=== PATIENT | female | born 1990 | race Caucasian/White ===

== ENCOUNTER 2023-03-31 09:41 | Emergency (ER) | payer MEDICAID, SELFPAY ==
[2023-03-31 09:52] VITALS: BP 108/66; PULSE 88; RESP 18; TEMP 36.2; O2SAT 100; BMI 17.4
--- NOTE | 2023-03-31 10:01 | CRLHL7_ITS ---
For Patients: As a result of the Century Cures Act, medical imaging exams and procedure reports are released immediately into your electronic medical record. You may view this report before your referring provider. If you have questions, please contact your health care provider. INDICATION: Abdominal pain right-sided for 2 days with bloating for 1 month. COMPARISON: None TECHNIQUE: CT examination of the abdomen and pelvis was performed following the uneventful intravenous administration of 58 cc of Isovue 370. Thin section axial images were obtained from the lung bases through the pubic symphysis. Oral contrast was not administered. Please note that all CT scans at this facility use dose modulation, iterative reconstruction, and/or weight-based dosing when appropriate to reduce radiation dose to as low as reasonably achievable. FINDINGS: LUNG BASES: The lung bases as visualized appear normal.The heart size is normal at the lung bases. No pleural effusion at the lung bases LIVER/BILIARY SYSTEM:The liver is massively enlarged and diffusely fatty infiltrated. The infiltrative pattern is quite heterogeneous. This can be seen in severe fatty infiltration with a geographic pattern but this could also be infiltrative malignant disease in the setting of fatty infiltration. Cirrhosis superimposed on fatty infiltration is also possible. The underlying primary liver disease could be acute viral hepatitis, alcoholic or non alcoholic steatohepatitis, amongst other possibilities. There is no biliary ductal dilation. There is gallbladder wall thickening. It is unclear whether this is related to primary gallbladder pathology or the adjacent abnormal liver. Consider sonography. No visible stone ADRENALS: Normal KIDNEYS, URETERS and BLADDER:The kidneys appear normal. No visible mass, calculus or hydronephrosis. The ureters and bladder as visualized appear normal. SPLEEN:Normal appearance. PANCREAS: Appears normal. RETROPERITONEUM and MESENTERY: There is no mass, adenopathy or aortic aneurysm. GASTROINTESTINAL SYSTEM: Rosal[place] areas of bowel wall thickening though this is probably due to edema or fat deposition rather than a malignant or inflammatory process of bowel. There is no mechanical obstruction or definite visible mass appearing PELVIS: An IUD is normally located. OSSEOUS STRUCTURES and ABDOMINAL WALL: There is an age-appropriate appearance of the osseous structures.No significant abdominal wall defect. OTHER: Moderate to severe ascites IMPRESSION: 1. Markedly abnormal liver. It is enlarged and fatty infiltrated but there also appears to be an infiltrative pattern that is unusual for fatty infiltration alone. This raises the possibility of malignant infiltration. No biliary ductal dilation. 2. Moderate to severe ascites. 3. Gallbladder wall thickening without visible stones. This is probably due to the adjacent abnormal liver rather than intrinsic gallbladder disease though sonography should be considered. Please note that all CT scans at this facility use dose modulation, iterative reconstruction, and/or weight-based dosing when appropriate to reduce radiation dose to as low as reasonably achievable. Dictated by Nicolás Arteaga MD @ 03/31/2023 12:18:13 PM (Electronically Signed)
--- NOTE | 2023-03-31 10:18 | ED_ITS ---
HPI - Abdominal Pain General Chief Complaint: Abdominal Pain Stated Complaint: Abdominal pain Time Seen by Provider: 03/31/23 09:58 History of Present Illness HPI narrative: Patient is a 33-year-old woman who has had 1 month of progressive lower abdominal pain. She states her last 2 days the pain has become more severe. The pain is sharp and stabbing and located in the bilateral lower abdominal area. She has no dysuria. She has had no change in her bowel. She has had mild anorexia but no nausea no vomiting. She has had no fevers no chills no night sweats. Patient states that she is not sexually active and has had no change in her menses. Patient's only abdominal surgery is previous removal of a tubal . Related Data Home Medications Medication Instructions Recorded Confirmed No Known Home Medications 03/31/23 03/31/23 Allergies Allergy/AdvReac Type Severity Reaction Status Date / Time acetaminophen [From Percocet] Allergy Verified 03/31/23 10:58 oxycodone [From Percocet] Allergy Verified 03/31/23 10:58 Review of Systems Status of ROS Reports: 10 or more systems reviewed and unremarkable except as noted in History and below [facility] Social History Smoking Status: Never smoker Do you use any of these nicotine containing products: None Second hand tobacco smoke exposure: No How often do you have a drink containing alcohol: 4 or more times a week How many standard drinks containing alcohol do you have on a typical day: 3 or 4 How often do you have six or more drinks on one occasion: Weekly AUDIT-C Alcohol total score: 8 Non-prescribed substance use: denies use service: No Exam Narrative: Exam Narrative: EXAM GENERAL: Patient appears comfortable EYES: No scleral icterus. LYMPH: No supraclavicular or cervical lymphadenopathy. SKIN: Visible skin seen during exam normal or with benign process only. EXT: No dependent lower extremity pedal edema. HEART: Regular rate and rhythm with no murmurs, rubs, or gallops. LUNGS: Clear to auscultation bilaterally with no crackles or wheezes. ABD: Mildly distended with hypoactive bowel sounds. She is tender to palpation in the left and right lower quadrants. PSYCH: Good eye contact, speech is not pressured. Const: Vital Signs, click to edit/add: Vital Signs - 24 hr 03/31/23 09:52 03/31/23 14:02 Temperature 97.2 F L Pulse Rate [Right Pulse Oximeter] 88 75 Respiratory Rate 18 18 Blood Pressure [Ri ght Upper Arm] 108/66 98/66 Pulse Oximetry 100 100 Oxygen Delivery Me thod Room Air Room Air Course Course Hospital Course: Patient seen and examined. Patient states she is not and is not sexually active. CBC CMP amylase UA CT abdomen and pelvis ordered. Vital Signs Vital signs: Initial Vital Signs Temperature 97.2 F L 03/31/23 09:52 Temperature Source Temporal Artery Scan 03/31/23 09:52 Pulse Rate 88 03/31/23 09:52 Respiratory Rate 18 03/31/23 09:52 Blood Pressure 108/66 03/31/23 09:52 Blood Pressure Mean 80 03/31/23 09:52 Blood Pressure Position Sitting 03/31/23 09:52 Pulse Oximetry 100 03/31/23 09:52 Oxygen Delivery Method Room Air 03/31/23 09:52 Vital Signs Temperature 97.2 F L 03/31/23 09:52 Pulse Rate 88 03/31/23 09:52 Respiratory Rate 18 03/31/23 09:52 Blood Pressure 108/66 03/31/23 09:52 Pulse Oximetry 100 03/31/23 09:52 Oxygen Delivery Method Room Air 03/31/23 09:52 Temperature 97.2 F L 03/31/23 09:52 Pulse Rate 75 03/31/23 14:02 Respiratory Rate 18 03/31/23 14:02 Blood Pressure 98/66 03/31/23 14:02 Pulse Oximetry 100 03/31/23 14:02 Oxygen Delivery Method Room Air 03/31/23 14:02 MDM - Abdominal Pain MDM Narrative Medical decision making narrative: Patient represents interesting clinical dilemma. She presents with lower abdominal pain with history of chronic alcohol use. Workup shows a remarkably elevated AST with normal ALT. Alkaline phosphatase is mildly elevated. She has a mild leukocytosis. Her coags are elevated. CT of the abdomen pelvis shows new ascites with likely infiltrative process of the liver. Ultrasound confirms the infiltrative process of the liver with gallbladder sludge no gallbladder wall thickening per hvac service technician. I did discuss case with our local general surgeon who recommended GI consultation which I already had called to obtain. I did review the case with [facility] and they do recommend transfer for diagnostic paracentesis with liver MRI and GI consultation. Patient has remained medically stable no signs of alcohol withdrawal. Patient this times transferred via ALS ambulance to [facility] with a diagnosis of acute liver insufficiency with ascites. Differential Diagnosis Differential diagnosis: Likely abdominal pain, acute appendicitis, calculus of kidney, constipation, diverticulitis, endometriosis, gastroenteritis, pancreatitis and small bowel obstruction Lab Data Labs: Lab Results 03/31/23 03/31/23 03/31/23 Range/Units 10:23 11:26 12:14 WBC 11.47 H (4.50-11.00) K/uL RBC 3.17 L (4.00-5.20) m/uL Hgb 12.8 (12.0-16.0) gm/dL Hct 36.4 (33.0-51.0) % MCV 115 H (80-100) fL MCH 40 H (26-34) pg MCHC 35 (32-36) gm/dL RDW Coeff of Usman 16.0 H (11.5-15.5) % Plt Count 190 (140-440) K/uL Neut % (Auto) 73.8 H (42.0-72.0) % Lymph % (Auto) 13.4 L (20-44) % Stan[place] % (Auto) 11.2 H (0.0-11.0) % Eos % (Auto) 1.0 (0.0-7.0) % Baso % (Auto) 0.4 (0.0-3.0) % Neut # (Auto) 8.50 H (1.7-7.0) K/uL Lymph # (Auto) 1.50 (0.90-2.90) K/uL Stanly # (Auto) 1.30 H (0.00-0.90) K/UL Eos # (Auto) 0.10 (0.00-0.50) K/uL Baso # (Auto) 0.00 (0.00-0.30) K/uL INR 1.44 H (0.91-1.10) APTT 42 H (23-33) Seconds Sodium 129 L (135-149) mmol/L Potassium 3.3 L (3.6-5.1) mmol/L Chloride 91 L (96-114) mmol/L Carbon Dioxide 33 H (20-32) mmol/L BUN 7 (5-24) mg/dL Creatinine 0.5 (0.5-1.5) mg/dL Estimated Creat Clear 137.75 Estimated GFR 129 ml/min Glucose 107 (60-115) mg/dL Calcium 8.8 (8.4-10.6) mg/dL Total Bilirubin 7.6 H (0.1-1.5) mg/dL Direct Bilirubin 3.7 H (0.0-0.5) mg/dL AST 331 H (12-35) U/L ALT 33 (4-35) U/L Alkaline Phosphatase 151 H (40-150) U/L Total Protein 7.4 (6.0-8.3) g/dL Albumin 3.6 (3.3-5.0) g/dL Amylase 78 (18-89) U/L Urine Color Red A (Yellow) Urine Appearance Slightly Cloudy A (Clear) Urine pH 6.0 (5.0-8.5) Ur Specific [place] <= 1.005 (1.000-1.030) Urine Protein 1+ A (Negative) Urine Glucose (UA) Negative (Negative) Urine Ketones Trace A (Negative) Urine Blood Negative (Negative) Urine Nitrite Negative (Negative) Urine Bilirubin 3+ A (Negative) Urine Urobilinogen 4.0 A (0.2-1.0) Ur Leukocyte Esterase Trace A (Negative) Urine RBC 2-5 A (0-2) Urine WBC 5-10 A (0-5) Ur Squamous Epith Cells Moderate A (None-Few) Urine Bacteria Moderate A (None) Ethyl Alcohol < 0.01 L (0.01-0.03) % Discharge Plan Discharge Clinical Impression: Acute hepatitis Patient Disposition: Xfer [facility] Discharge Location: [facility] Condition: Stable Activity Level: Other Discharge Diet: Other Diet Detail: NPO Prescriptions: No Action No Known Home Medications Stand Alone Forms: lark Info Instructions
[2023-03-31 10:33] LABS: Basophils Percent Auto 0.4 % (0.0-3.0); Hematocrit 36.4 % (33.0-51.0); Hemoglobin* 12.8 gm/dL (12.0-16.0); Immature Granulocytes Pct Auto 0.2 %; Lymphocytes Percent Auto 13.4 % (20-44); Mean Corpuscular HGB Conc 35 gm/dL (32-36); Mean Corpuscular Hemoglobin 40 pg (26-34); Mean Corpuscular Volume 115 fL (80-100); Monocytes Percent Auto 11.2 % (0.0-11.0); Neutrophils Percent Auto 73.8 % (42.0-72.0); Platelet Count* 190 K/uL (140-440); Red Blood Count 3.17 m/uL (4.00-5.20); White Blood Count* 11.47 K/uL (4.50-11.00)
[2023-03-31 10:34] LABS: Slide Review Reflex No
[2023-03-31 11:16] LABS: Chloride* 91 mmol/L (96-114)
[2023-03-31 11:17] LABS: Albumin* 3.6 g/dL (3.3-5.0); Potassium* 3.3 mmol/L (3.6-5.1); Sodium* 129 mmol/L (135-149)
[2023-03-31 11:19] LABS: Amylase* 78 U/L (18-89)
[2023-03-31 11:20] LABS: Alanine Aminotransferase* 33 U/L (4-35); Alkaline Phosphatase* 151 U/L (40-150); Aspartate Amino Transferase* 331 U/L (12-35); Bilirubin Total* 7.6 mg/dL (0.1-1.5); Blood Urea Nitrogen* 7 mg/dL (5-24); Calcium* 8.8 mg/dL (8.4-10.6); Carbon Dioxide* 33 mmol/L (20-32); Creatinine* 0.5 mg/dL (0.5-1.5); Est. Creatinine Clearance* 137.75; Estimated Glomerular Filt Rate 129 ml/min; Glucose* 107 mg/dL (60-115); Total Protein* 7.4 g/dL (6.0-8.3)
[2023-03-31 11:51] LABS: INR 1.44 (0.91-1.10); Prothrombin Time 18.4 Seconds
[2023-03-31 11:52] LABS: Partial Thromboplastin Time* 42 Seconds (23-33)
[2023-03-31 11:56] LABS: Ethanol* < 0.01 % (0.01-0.03)
[2023-03-31 12:00] LABS: Appearance Urine Slightly Cloudy (Clear); Bilirubin Urine 3+ (Negative); Blood Urine Negative (Negative); Color Urine Red (Yellow); Glucose Urine Negative (Negative); Ketones Urine Trace (Negative); Leukocyte Esterase Urine Trace (Negative); Nitrite Urine Negative (Negative); Protein Urine 1+ (Negative); Specific Gravity Urine <= 1.005 (1.000-1.030)
--- NOTE | 2023-03-31 12:28 | CRLHL7_ITS ---
For Patients: As a result of the Century Cures Act, medical imaging exams and procedure reports are released immediately into your electronic medical record. You may view this report before your referring provider. If you have questions, please contact your health care provider. INDICATION: Right upper quadrant abdomen pain. TECHNIQUE: Ultrasound abdomen limited. Sonographic images of the right upper quadrant were obtained using sierra-scale and color Doppler images. COMPARISON: None. FINDINGS: Liver: Heterogeneous echotexture with lack of through transmission.. No suspicious focal masses. No intrahepatic biliary dilatation. Ascites is noted. Gallbladder: Sludge is noted in the patent portion of the gallbladder. There is gallbladder wall thickening measuring up to 4 millimeters. There is mild pericholecystic fluid.. Common bile duct: 6 mm. Pancreas: Partially visualized, Right kidney: Normal in size. Normal echotexture and cortex. No suspicious masses, stones, or hydronephrosis. Vasculature: Proximal abdominal aorta and IVC are unremarkable. IMPRESSION: Heterogeneous echotexture of the liver with hepatic steatosis. Ascites is noted. Gallbladder sludge with gallbladder wall thickening and pericholecystic fluid concerning for cholecystitis. Correlate with clinical and laboratory findings. Dictated by Crystal Rudolph MD @ 03/31/2023 2:35:11 PM (Electronically Signed)
[2023-03-31 12:34] LABS: Bacteria Urine Moderate; Squamous Epithelial Cell Urine Moderate (None-Few)
[2023-03-31 13:23] LABS: Bilirubin Direct* 3.7 mg/dL (0.0-0.5)
[2023-03-31 14:02] VITALS: BP 98/66; PULSE 75; RESP 18; O2SAT 100
--- NOTE | 2023-03-31 17:26 | ED.NURSE ---
Report given to GERTRUDIS Decker at [facility]. Pt to go to [id number]. Dispatch called ~ ETA [id number].
[2023-03-31 18:03] VITALS: BP 100/65; PULSE 72; RESP 16; O2SAT 100
[2023-03-31] MEDS: HYDROmorphone 0.5 mg/0.5 ml inj IVP (20:25)
[2023-03-31 20:28] VITALS: BP 102/67; PULSE 86; RESP 18; O2SAT 100
[2023-03-31 20:34] VITALS: BP 102/67; PULSE 86; RESP 18; TEMP 36.7; O2SAT 100
--- NOTE | 2023-03-31 20:36 | ED.NURSE ---
Dispatch arrives for patient.
--- NOTE | 2023-03-31 20:41 | ED.NURSE ---
Patient transported to [facility] via BLS ambulance. IV left in place for transport. Patient sent with PCS form, transfer consent, Ed transfer report, MD note, Imaging report and face sheet. Jeronimo at [facility] updated with depature.
== END 2023-03-31 20:47 | disposition short-term general hospital (02) ==
PROVIDERS: Emergency Provider Internal Medicine
DX: B17.9 Acute viral hepatitis, unspecified (principal)
CPT/HCPCS: 36415; 74177; 76705; 80053; 81003; 81015; 82077; 82150; 82248; 85025; 85610; 85730; 87086; 96374; 99283; 99285; J1170; Q9967